=== PATIENT | female | born 1970 | race Caucasian/White ===

== ENCOUNTER 2018-02-27 03:26 | Emergency (ER) | payer OTHER ==
[~2018-02-27] VITALS: Ht 170.2 cm; Wt 81.6 kg
[2018-02-27] MEDS ORDERED: NKM (03:38)
[2018-02-27] MEDS ORDERED: BUSPAR10 MG ORAL (03:56)
--- NOTE | 2018-02-27 03:57 | Emergency Room Report ---
History of Present Illness General Chief Complaint: General Complaint Source: Patient Present Illness HPI This a 47-year-old female with a history of anxiety. She was weaned off of Xanax. She was given Phenergan because she felt nauseous. Tonight she woke up feeling anxious and little nauseous she took Phenergan. Dissection make it worse. She felt more jittery and anxious and shaky. No fever chills. No suicidal thoughts or homicidal thought. She walked here. No other complaint. No rash or allergic reaction. Allergies: Coded Allergies: CIPROFLOXACIN (Verified Allergy, Unknown, 02/27/18) Patient History Past Medical History: see triage record, old chart reviewed, psych hx Past Surgical History: other Pertinent Family History: none Social History: Denies: smoking Now: No Immunizations: other Reviewed Nursing Documentation: PMH: Agreed; PSxH: Agreed Nursing Documentation-PMH History Of Psychiatric Problem: Yes - ANXIETY Review of Systems Eye: Denies: eye pain, blurred vision ENT: Denies: ear pain, nose congestion, throat swelling Respiratory: Denies: cough, shortness of breath Cardiovascular: Denies: chest pain, palpitations Gastrointestinal: Denies: abdominal pain, diarrhea, nausea, vomiting Musculoskeletal: Denies: back pain, joint pain Skin: Denies: rash Neurological: Denies: headache, numbness Endocrine: Denies: increased thirst, increased urine Hematologic/Lymphatic: Denies: easy bruising All Other Systems: negative except mentioned in HPI Physical Exam Vital Signs Date Time Temp Pulse Resp B/P (MAP) Pulse Ox O2 Delivery O2 Flow Rate FiO2 02/27/18 03:33 98.1 66 18 139/72 94 Room Air 98.1 vitals normal Sp02 EP Interpretation: reviewed, normal General Appearance: well appearing, no apparent distress, alert Head: normocephalic, atraumatic Eyes: bilateral eye PERRL, bilateral eye EOMI ENT: hearing grossly normal, normal pharynx Neck: full range of motion, supple, no meningismus Respiratory: chest non-tender, lungs clear, normal breath sounds Cardiovascular #1: regular rate, rhythm, no murmur Gastrointestinal: normal bowel sounds, non tender, no mass, no organomegaly, no bruit, non-distended Musculoskeletal: back normal, gait/station normal, normal range of motion Psychiatric: mood/affect normal Skin: warm/dry Medical Decision Making Diagnostic Impression: Primary Impression: Adverse drug reaction Qualified Codes: T50.905A - Adverse effect of unspecified drugs, medicaments and biological substances, initial encounter ER Course Patient with an adverse drug reaction. It may be anxiety related versus akathisia. No evidence of dystonic reaction. No evidence of suicidal thoughts homicidal thought. Better after Benadryl. We'll discharge home. Last Vital Signs Date Time Temp Pulse Resp B/P (MAP) Pulse Ox O2 Delivery O2 Flow Rate FiO2 02/27/18 03:33 98.1 66 18 139/72 94 Room Air 98.1 Status: improved Disposition: HOME, SELF-CARE Condition: Stable Scripts Buspirone Hcl* (BUSPAR*) 10 Mg Tablet 10 MG ORAL THREE TIMES A DAY, #30 TAB 0 Refills Prov: ANGELA ABAD M.D. 02/27/18 Referrals: [facility] (PCP) Additional Instructions: Stop the Phenergan. Follow-up with your doctor in 7 days. Return if symptom worsen. ANGELA ABAD M.D. Feb 27, 2018 03:56
[2018-02-27 04:11] VITALS: BP 139/72
[2018-02-27 04:12] VITALS: BP 139/72
== END 2018-02-27 04:17 | disposition home or self-care (01) ==
LOC: EMR 03:38
DX: F41.9 Anxiety disorder, unspecified (principal); T42.4X5A Adverse effect of benzodiazepines, initial encounter
CPT/HCPCS: 99282